=== PATIENT | male | born 1950 | race Caucasian/White ===

== ENCOUNTER 2017-10-29 11:25 | Observation (INO) ==
[2017-10-29] MEDS ORDERED: Aspirin 81 MG TAB.CHEW PO ONE (11:43)
[2017-10-29 11:59] LABS: Basophils # 0.1 K/mcL (0.0-0.2); Eosinophils # 0.4 K/mcL (0.0-0.6); Eosinophils % 4.8 %; Hematocrit 44.5 % (37.5-50.1); Hemoglobin 14.9 g/dL (12.9-16.9); Immature Granulocytes % 0.5 % (0-4); Immature Platelets 6.8 % (1.1-6.1); Lymphocytes # 2.9 K/mcL (0.6-4.6); Lymphocytes % 34.2 %; Mean Corpuscular HGB Conc 33.5 g/dL (31.6-35.5); Mean Corpuscular Hemoglobin 28.2 pg (28.0-33.3); Mean Corpuscular Volume 84.1 fL (83.0-100.0); Mean Platelet Volume 10.8 fL (9.4-12.4); Monocytes # 0.6 K/mcL (0.0-1.3); Monocytes % 6.6 %; Neutrophils # 4.4 K/mcL (1.6-8.9); Nucleated Red Blood Cells 0.4 /100 WBC (0); Platelet Count 206 K/mcL (140-400); Red Blood Count 5.29 M/mcL (4.19-5.50); Red Cell Distribution Width 12.9 % (11.5-14.5); Segmented Neutrophils % 52.9 %
--- NOTE | 2017-10-29 12:00 | Emergency Department Note ---
START Narrative - START START: I examined this patient and my medical decision-making was reviewed with the BACK GRAY CLOTH WASHER/PA/Advanced Practice Nurse/Resident Physician. I agree with the documented findings, disposition and treatment plan as described except to the extent set forth below. Patient has a history of cardiac disease and does have complaint of chest pain and shortness of breath for the last several days. The chest pain is exertional. Denies any pleuritic aspect of the chest pain and no radiation to the back but it does radiate to the left arm. I did review the EKG showing normal sinus rhythm with a rate of 77 without acute ischemic change. Symptoms are concerning for acute coronary syndrome and testing is initiated including labs, chest x-ray card cardiac monitoring and pulse ox. The patient does take one aspirin per day. 1200
[2017-10-29 12:34] LABS: BUN/Creatinine Ratio 21 (6-26); Blood Urea Nitrogen 18 mg/dL (8-23); Calcium 9.3 mg/dL (8.6-10.3); Carbon Dioxide 25 mEq/L (23-29); Chloride 108 mEq/L (98-107); Glucose 92 mg/dL (70-105); Osmolality,Calculated 294 (280-300); Potassium 4.1 mEq/L (3.5-5.1); Sodium 141 mEq/L (136-145); eGFR For African Americans > 60 (> 60); eGFR For Non-African Americans > 60 (> 60)
[2017-10-29 12:42] LABS: Troponin I < 0.03 ng/mL (< 0.04)
--- NOTE | 2017-10-29 13:24 | Emergency Department Note ---
Disposition Clinical Impression: Chest pain Qualifiers: Chest pain type: other chest pain Qualified Code(s): R07.89 - Other chest pain ; R07.8 - Other chest pain Disposition: Admitted As Inpatient Condition: Fair General Adult HPI - General Chief complaint: ED Chest Pain Stated complaint: Chest Pain Time Seen by Provider: 10/29/17 11:29 Source: patient Limitations: no limitations Nursing Notes Reviewed: Yes Vital Signs Reviewed: Yes - History of Present Illness HPI Narrative: Mr. Jeremiah Mendoza is a 67 year old male with past medical history of PA with stent 2 years ago, presents with 1 day onset of substernal chest pain that is dull, worsens with exertion, and radiates to the left arm. The pain is intermittent, improves with rest, does not change with deep inspiration, movement of torso, or direct palpation. He takes a beta-chirag and a daily aspirin, current smoker (1/2 PPD x 20 years). He denies shortness of breath/ pleuritic pain, recent trauma, or acid reflux. Pain Scale: 4 - Related Data Home Medications Medication Instructions Recorded Confirmed Amlodipine Besylate [Amlodipine 10 mg PO DAILY 10/29/17 10/29/17 Besylate] Clopidogrel [Plavix] 75 mg PO DAILY 10/29/17 10/29/17 Doxazosin [Cardura] 4 mg PO DAILY 10/29/17 10/29/17 Lisinopril [Zestril] 40 mg PO DAILY 10/29/17 10/29/17 Lovastatin [Lovastatin] 40 mg PO DAILY 10/29/17 10/29/17 Metoprolol Tartrate [Metoprolol 50 mg PO BID 10/29/17 10/29/17 Tartrate] Allergies Allergy/AdvReac Type Severity Reaction Status Date / Time No Known Allergies Allergy Verified 10/29/17 11:34 Constitutional: Denies: fever Cardiovascular: Reports: chest pain Respiratory: Denies: cough, dyspnea Gastrointestinal: Denies: abdominal pain Musculoskeletal: Denies: back pain Integumentary: Denies: rash Neurological: Denies: headache Psychiatric: Denies: anxiety Endocrine: Denies: fatigue Hematological/Lymphatic: Denies: easy bleeding Past Medical History - Past Medical History Medical history: Reports: hyperlipidemia, hypertension, myocardial infarction Psychiatric history: Reports: no psych history - Social History Smoking Status: Current every day smoker Smokeless Tobacco Status: No Alcohol use: Reports: none Drug use: Reports: none Physical Exam - General Limitations: no limitations General appearance: alert, in no apparent distress - Head Head exam: atraumatic - Eye Eye exam: Present: EOMI - Expanded Neck Exam Neck exam focused ED: Absent: JVD - Chest Chest inspection: Present: normal inspection, symmetric chest wall rise - Respiratory Respiratory exam: Present: normal lung sounds bilaterally - Cardiovascular Cardiovascular exam: Present: regular rate, normal rhythm, +S1, +S2, other (no pain on movement of torso, no tenderness to palpation of sternum, ribs, or precordial chest). Absent: systolic murmur, diastolic murmur, rubs, gallop - Abdominal Exam Abdominal exam: Absent: tenderness at McBurney's Point, bruit, pulsatile mass - Extremities Exam Extremities exam: Absent: pedal edema, calf tenderness Course Course Narrative: Mr. Mendoza presents with substernal chest pain that is dull, radiates to left arm, and worsens with exertion. ECG was obtained, showing NSR, no st elevation or depression, no t wave abnormalities, normal axis. Negative troponin x1. Based on patient's history of PA 2 years ago with similar presentation, age of 67, risk factors including smoking, hypertension, we will admit for inpatient observation. Vital Signs Temperature 97.9 F 10/29/17 11:28 Pulse Rate 78 10/29/17 11:28 Respiratory Rate 16 10/29/17 11:28 Blood Pressure 134/81 10/29/17 11:28 O2 Sat by Pulse Oximetry 96 10/29/17 11:28 Temperature 98.0 F 10/29/17 16:43 Pulse Rate 83 10/29/17 16:43 Respiratory Rate 16 10/29/17 16:43 Blood Pressure 129/74 10/29/17 16:43 O2 Sat by Pulse Oximetry 95 10/29/17 16:43 Oxygen Delivery Oxygen Delivery Room Air Medical Decision Making - Medical Records Medical records reviewed: Yes I reviewed the patient's medical records. - Lab Data Lab results reviewed: Yes I reviewed the patient's lab results. Result diagrams: 10/29/17 11:54 10/29/17 11:54 Lab Results 10/29/17 10/29/17 Range/Units 11:54 11:54 WBC 8.4 (4.3-11.1) K/mcL RBC 5.29 (4.19-5.50) M/mcL Hgb 14.9 (12.9-16.9) g/dL Hct 44.5 (37.5-50.1) % MCV 84.1 (83.0-100.0) fL MCH 28.2 (28.0-33.3) pg MCHC 33.5 (31.6-35.5) g/dL RDW 12.9 (11.5-14.5) % Plt Count 206 (140-400) K/mcL MPV 10.8 (9.4-12.4) fL Immature Gran % 0.5 (0-4) % Seg Neutrophils % 52.9 % Lymphocytes % 34.2 % Monocytes % 6.6 % Eosinophils % 4.8 % Basophils % 1.0 % Neutrophils # 4.4 (1.6-8.9) K/mcL Lymphocytes # 2.9 (0.6-4.6) K/mcL Monocytes # 0.6 (0.0-1.3) K/mcL Eosinophils # 0.4 (0.0-0.6) K/mcL Basophils # 0.1 (0.0-0.2) K/mcL Nucleated RBCs/100 WBC 0.4 H (0) /100 WBC Immature Plt Fraction 6.8 H (1.1-6.1) % Sodium 141 (136-145) mEq/L Potassium 4.1 (3.5-5.1) mEq/L Chloride 108 H (98-107) mEq/L Carbon Dioxide 25 (23-29) mEq/L BUN 18 (8-23) mg/dL Creatinine 0.84 (0.70-1.30) mg/dL Est GFR ( Amer) > 60 (> 60) Est GFR (Non-Af Amer) > 60 (> 60) BUN/Creatinine Ratio 21 (6-26) Glucose 92 (70-105) mg/dL Calculated Osmolality 294 (280-300) Calcium 9.3 (8.6-10.3) mg/dL Troponin I < 0.03 (< 0.04) ng/mL TSH 1.367 (0.340-5.600) mcIU/mL Free T4 0.78 (0.70-2.00) ng/dl - Radiology Data Radiology results reviewed: Yes I reviewed the patient's radiology results. Chest X-Ray 10/29/17 11:44 IMPRESSION: No acute cardiopulmonary process. D/ / Mohan Hall MD / Mohan Hall MD Interpreting Provider: Mohan Hall MD - EKG Data EKG #1 EKG attestation: Yes I reviewed and interpreted this EKG. EKG results narrative: ECG obtained 1126. Shows regular rate at 77 bpm. Normal axis. Normal R wave progression, no st elevation or depression.
[2017-10-29] MEDS ORDERED: Naloxone 0.4 MG/ML INJ IVP PRN (14:14)
[2017-10-29] MEDS ORDERED: Acetaminophen 325 MG TABLET PO PRN (14:14)
[2017-10-29] MEDS ORDERED: *HR* HYDROcodone/Acet 5/325 mg TABLET PO PRN (14:14)
--- NOTE | 2017-10-29 14:28 | Internal Med History&Physical ---
Date of Encounter: 10/29/17 Time of Encounter: 13:45 Assessment and Plan (1) Chest pain Current visit: Yes Status: Acute Acute chest pain that began yesterday and described as centralized chest pressure and SOB that worsens w/exertion. Also radiation to left arm. Reports same intermittent sx two weeks ago. Risk factors include HTN, HLD, tobacco abuse , and previous IN 2 years ago w/stent x1. Denies CP during exam. No recent echocardiogram or stress test. Initial troponin <0.03. Trend x2. Continuous cardiac telemetry. Echocardiogram ordered. NPO at midnight for a.m. exercise stress test. Aspirin. Lipitor 80 mg now followed by 10 mg daily. Consider Cardiology consult if troponins, echocardiogram, and/or stress test results abnormal. Pt. discussed w/Dr. Hines who agrees w/plan of care. Pt. is high risk for further morbidity and cardiac event based on current CP sx, hx of previous IN 2 years ago w/stent placement x1, hx; and risk factors of HTN, HLD, and current tobacco abuse. Observation. Qualifiers: Chest pain type: other chest pain Qualified Code(s): R07.89 - Other chest pain; R07.8 - Other chest pain (2) Tobacco abuse counseling Current visit: Yes Status: Acute Pt. counseled >10 minutes regarding smoking cessation and the need for it regarding his current sx, overall health, and risk factors. Pt. denied need for nicotine patch while inpatient. (3) HTN (hypertension) Current visit: Yes Status: Chronic Hx of chronic HTN. Monitor pt. and VS. Continue pts. lisinopril, Metoprolol, and amlodipine. Qualifiers: Hypertension type: essential hypertension Qualified Code(s): I10 - Essential (primary) hypertension (4) HLD (hyperlipidemia) Current visit: Yes Status: Chronic Hx of chronic HLD. Lipid panel in a.m. labs. Continue pts. Lipitor. Qualifiers: Hyperlipidemia type: pure hypercholesterolemia Qualified Code(s): E78.00 - Pure hypercholesterolemia, unspecified; E78.0 - Pure hypercholesterolemia (5) DVT prophylaxis Current visit: Yes Status: Acute Heparin 5,000 units SQ Q12 for DVT prophylaxis. Monitor pt. for signs of bleeding. Internal Medicine - H&P: HPI Chief complaint: Chest pain Admitted From: Emergency Dept Plans for Post Hospital Care: Home History of present illness: Mr. Mendoza is a 67 year old male w/PMH of HTN, HLD, and previous IN 2 years ago w/stent placement x1 presents from the ED w/chief complaint of chest pain that began yesterday and he describes as pressure in the center of his chest with radiation to his left arm, increasing chest pain and shortness of breath with exertion, and intermittent symptoms for the past 2 weeks. Pt. denies alleviating factors. Pt. reports taking aspirin daily. 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 Pt. denies recent illness, fever, chills, nausea, vomiting, headache, changes in vision, palpitations, abdominal pain, unusual bleeding, diarrhea, constipation, lightheadedness, dizziness, pre-syncope, or syncope. Past Med Surg Social Fam HX - Past Medical History Source: patient, old records reviewed Medical history: hyperlipidemia, hypertension, myocardial infarction (Two years ago w/stent placement x1) Psychiatric history: no psych history - Past Surgical History Surgical History: orthopedic, other (Back surgery) - Social History Smoking Status: Current every day smoker Packs per day: 1/2 PPD Smokeless Tobacco Status: No Alcohol use: none Drug use: none Occupational status: employed Current living situation: Home Activity Level: Independent ambulation, Very active Recent Out of Country Travel Within the Last 8 Weeks: No Exposure or Possible Exposure to Illness During Travel: No - Family History Father Race: Family Member Ethnicity: Non- Living Status: Age at : 58 Cause of : IN Hx Family Cardiac Disorders: Yes (IN, CVA, HTN, HLD) Mother Race: Family Member Ethnicity: Non- Living Status: Age at : 63 Cause of : IN Hx Family Cardiac Disorders: Yes (IN, HTN, HLD) Hx Family Endocrine Disorder: Yes (DM) Brother Race: Family Member Ethnicity: Non- Living Status: Still Living Hx Family Endocrine Disorder: Yes Sister Race: Family Member Ethnicity: Non- Living Status: Age at : 52 Cause of : Ovarian cancer Hx Family Cancer: Yes (Ovarian) Internal Medicine - H&P: Meds Amlodipine Besylate [Amlodipine Besylate] 10 mg PO DAILY 10/29/17 [History] Clopidogrel [Plavix] 75 mg PO DAILY 10/29/17 [History] Doxazosin [Cardura] 4 mg PO DAILY 10/29/17 [History] Lisinopril [Zestril] 40 mg PO DAILY 10/29/17 [History] Lovastatin [Lovastatin] 40 mg PO DAILY 10/29/17 [History] Metoprolol Tartrate [Metoprolol Tartrate] 50 mg PO BID 10/29/17 [History] 3 Allergy/AdvReac Type Severity Reaction Status Date / Time No Known Allergies Allergy Verified 10/29/17 11:34 All Systems PM: A 10-system review of systems was performed and is negative for pertinent findings except as documented above in the HPI. - Constitutional Constitutional: no chills, no fever(s), no night sweats - EENT Eyes: no change in vision, no discharge, no pain, no photophobia Ears: no ear discharge, no ear pain, no tinnitus Nose, mouth and throat: no dysphagia, no nasal discharge, no neck pain, no sore throat - Cardiovascular Cardiovascular ROS IM: as per HPI, chest pain (Pressure in central chest w/ radiation to left arm. Worse w/exertion. ), dyspnea, dyspnea on exertion, no diaphoresis, no lightheadedness, no palpitations, no syncope - Respiratory Respiratory: as per HPI, dyspnea, dyspnea on exertion, no cough, no wheezing, no excessive phlegm production - Gastrointestinal Gastrointestinal: no abdominal pain, no diarrhea, no hematemesis, no hematochezia, no melena, no nausea, no vomiting - Genitourinary Genitourinary ROS male: as per HPI - Musculoskeletal Musculoskeletal ROS IM: no numbness, no tingling - Integumentary Integumentary IM: no rash, no unusual bruising - Neurological Neurological ROS: no confusion, no convulsions, no focal weakness, no numbness, no tingling, no tremor(s) - Psychiatric Psychiatric: as per HPI - Endocrine Endocrine IM: as per HPI - Hematologic/Lymphatic Hematologic/Lymphatic: no easy bruising - Allergic/Immunologic Allergic/Immunologic: as per HPI - Constitutional Vitals: Temp Pulse Resp BP Pulse Ox 97.9 F 75 18 124/80 95 10/29/17 11:28 10/29/17 13:29 10/29/17 14:22 10/29/17 14:22 10/29/17 13:29 General appearance: Present: cooperative, A&O X 3, pleasant, no acute distress, answers questions appropriately - Head Head exam: Present: atraumatic, normocephalic - Eye Eye exam: Present: PERRL, conjuntiva pink, sclera anicteric Pupils: Present: PERRL - ENT ENT exam: Present: normal exam - Neck Neck exam general surgery: Present: normal inspection, supple, trachea midline. Absent: lymphadenopathy - Respiratory Respiratory exam: Present: CTAB. Absent: accessory muscle use, rales, rhonchi, wheezes - Cardiovascular Cardiovascular exam: Present: RRR, +S1, +S2. Absent: diastolic murmur, gallop, rubs, systolic murmur - GI/Abdominal GI/Abdominal exam: Present: normal bowel sounds, soft, no peritoneal signs. Absent: distended, tenderness - Rectal Rectal exam: Present: deferred - Additional comments: exam deferred. - Extremities Exam Extremities exam: Present: warm, radial pulses palpable and symmetrical. Absent : calf tenderness, cyanotic, pedal edema - Back Exam Back exam: Present: normal inspection - Neurological Exam Neurological exam: Present: CN II-XII intact, oriented X3, no focal deficits. Absent: pronater drift, facial droop, speech deficit - Psychiatric Psychiatric exam: Present: normal affect, normal mood - Skin Skin exam: Present: dry, intact Internal Med - H&P Results - Labs CBC & Chem 7: 10/29/17 11:54 10/29/17 11:54 - EKG Data EKG shows normal: sinus rhythm - EKG Data Prior EKG available for review: yes Interpretation IM: suggestive of ischemia EKG comments: 10/29/17 15:44 EKG dated 02/09/15 shows sinus rhythm. Consider posterior IN. EKG dated 10/29/17 shows sinus rhythm and normal ECG. - Diagnostic Studies Chest x-ray Additional comments: Impressions Chest X-Ray 10/29/17 11:44 IMPRESSION: No acute cardiopulmonary process. D/ / Mohan Hall MD / Mohan Hall MD Interpreting Provider: Mohan Hall MD
[2017-10-29 16:30] LABS: Thyroid Stimulating Hormone 1.367 mcIU/mL (0.340-5.600)
[2017-10-29] MEDS: *HR* Heparin 5,000 UNIT/ML VIAL SQ SCH (17:35)
[2017-10-30 00:59] LABS: Basophils # 0.1 K/mcL (0.0-0.2); Basophils % 0.7 %; Eosinophils # 0.4 K/mcL (0.0-0.6); Eosinophils % 3.6 %; Hematocrit 38.3 % (37.5-50.1); Hemoglobin 13.2 g/dL (12.9-16.9); Immature Granulocytes % 0.4 % (0-4); Lymphocytes # 2.9 K/mcL (0.6-4.6); Lymphocytes % 29.6 %; Mean Corpuscular HGB Conc 34.5 g/dL (31.6-35.5); Mean Corpuscular Hemoglobin 28.7 pg (28.0-33.3); Mean Corpuscular Volume 83.3 fL (83.0-100.0); Mean Platelet Volume 11.1 fL (9.4-12.4); Monocytes # 0.8 K/mcL (0.0-1.3); Monocytes % 7.8 %; Neutrophils # 5.7 K/mcL (1.6-8.9); Platelet Count 186 K/mcL (140-400); Red Cell Distribution Width 13.2 % (11.5-14.5); Segmented Neutrophils % 57.9 %
[2017-10-30 01:23] LABS: Alanine Aminotransferase 16 Units/L (7-52); Albumin 3.7 g/dL (3.5-5.7); Albumin/Globulin Ratio 1.5 (1.1-2.2); Alkaline Phosphatase 85 Units/L (34-104); Aspartate Amino Transferase 18 Units/L (13-39); BUN/Creatinine Ratio 25 (6-26); Bilirubin,Total 0.4 mg/dL (0.3-1.0); Blood Urea Nitrogen 21 mg/dL (8-23); Calcium 8.9 mg/dL (8.6-10.3); Carbon Dioxide 25 mEq/L (23-29); Chloride 110 mEq/L (98-107); Chol/HDL Ratio 6.6 (0-4.9); Cholesterol 191 mg/dL (< 200); Globulin 2.4 g/dL (2.4-3.5); Glucose 125 mg/dL (70-105); HDL Cholesterol 29 mg/dL (40-59); LDL Cholesterol,Calculated 120 mg/dL (0-99); Magnesium 2.2 mg/dL (1.6-2.6); Osmolality,Calculated 292 (280-300); Potassium 3.8 mEq/L (3.5-5.1); Sodium 139 mEq/L (136-145); Total Protein 6.1 g/dL (6.4-8.9); Triglycerides 208 mg/dL (< 150); eGFR For African Americans > 60 (> 60); eGFR For Non-African Americans > 60 (> 60)
[2017-10-30] MEDS: *HR* Heparin 5,000 UNIT/ML VIAL SQ SCH (05:55)
[2017-10-30] MEDS ORDERED: Regadenoson 0.4 MG/5 ML SYRINGE IVP ONE (06:04)
[2017-10-30] MEDS ORDERED: Aspirin Enteric Coated 81 MG Tablet PO SCH (09:00)
[2017-10-30] MEDS ORDERED: Lisinopril 20 MG TABLET PO SCH (09:00)
[2017-10-30] MEDS ORDERED: amLODIPine 5 MG TABLET PO SCH (09:00)
[2017-10-30 11:22] VITALS: BP 115/74
--- NOTE | 2017-10-30 13:18 | Discharge Summary ---
Orders not resulted at time of discharge: Pending orders 10/29/17 14:18 NM melania perf SPECT multi [NM] Routine 10/30/17 00:48 A1C [Hgb A1C] AM 0400 10/31/17 04:00 Complete Blood Count [HEME] AM 0400 Comprehensive Metabolic Panel AM 0400 11/01/17 04:00 Complete Blood Count [HEME] AM 0400 Comprehensive Metabolic Panel AM 0400 11/02/17 04:00 Complete Blood Count [HEME] AM 0400 Comprehensive Metabolic Panel AM 0400 Date of Encounter: 11/10/17 Time of Encounter: 14:58 - Discharge Diagnosis (1) Chest pain Priority: Primary Status: Acute Comments: presented with CP and SOB that occurred while engaging in strenuous activity. Relieved with rest. Has known CAD as noted below. Serial troponins negative. EKG without acute ST changes. Stress test with evidence of old infarct, negative for ischemia. Chest pain resolved at time of discharge. Continue home ASA, Plavix, statin, BB, isosorbide added. Follow-up with cardiology and/or PCP outpatient. Qualifiers: Chest pain type: other chest pain Qualified Code(s): R07.89 - Other chest pain; R07.8 - Other chest pain (2) CAD (coronary artery disease) Priority: Primary Status: Acute Comments: hx prior NE and stents. With chest pain and workup as noted above. Continue home ASA, Plavix, statin, BB. Follow-up with cardiology outpatient. Qualifiers: Coronary Disease-Associated Artery/Lesion type: [place] artery [place] vs. transplanted heart: [place] heart Associated angina: without angina Qualified Code(s): I25.10 - Atherosclerotic heart disease of [place] coronary artery without angina pectoris (3) HLD (hyperlipidemia) Priority: Secondary Status: Chronic Comments: per hx. Cont home statin Qualifiers: Hyperlipidemia type: pure hypercholesterolemia Qualified Code(s): E78.00 - Pure hypercholesterolemia, unspecified; E78.0 - Pure hypercholesterolemia (4) HTN (hypertension) Priority: Secondary Status: Chronic Comments: per hx. BP controlled. Cont home BP medication Qualifiers: Hypertension type: essential hypertension Qualified Code(s): I10 - Essential (primary) hypertension Hospital course: Mr. Mendoza is a 67 year old male with PMH CAD and hypertension who presented to [facility] on 10/29/2017 with complaints of chest pain or shortness of breath. He was placed in observation status for ACS rule out. Please see assessment and plan for further details Discharge discussed with: patient - Time Spent with Patient Total time spent providing and/or coordinating discharge services: - Discharge Medications Prescriptions: Isosorbide MONOnitrate (24 HR) [Imdur] 30 mg PO DAILY #30 tab.er.24h Home Medications: Amlodipine Besylate 10 mg PO DAILY 10/29/17 [History] Clopidogrel [Plavix] 75 mg PO DAILY 10/29/17 [History] Doxazosin [Cardura] 4 mg PO DAILY 10/29/17 [History] Lisinopril [Zestril] 40 mg PO DAILY 10/29/17 [History] Lovastatin 40 mg PO DAILY 10/29/17 [History] Metoprolol Tartrate 50 mg PO BID 10/29/17 [History] Isosorbide MONOnitrate (24 HR) [Imdur] 30 mg PO DAILY #30 tab.er.24h 10/30/17 [ Rx] Allergies/Adverse Reactions: 3 Allergy/AdvReac Type Severity Reaction Status Date / Time No Known Allergies Allergy Verified 10/29/17 11:34 Date of admission: 10/29/17 13:55 Primary care physician: Dipti Jonas CNP Consults: 10/29/17 14:16 Consult to Manager Clinical Research [CONS] Routine Reason for SW Consult: Please assess patient for possible home needs for post -discharge planning. Discharging clinician: Jessica Morrell Anticipated date of discharge: 10/30/17 - Constitutional Vitals: Temp Pulse Resp BP Pulse Ox 98.2 F 70 17 115/74 94 10/30/17 11:21 10/30/17 11:21 10/30/17 11:21 10/30/17 11:21 10/30/17 11:21 General appearance: Present: cooperative, A&O X 3, pleasant, no acute distress, answers questions appropriately - Head Head exam: Present: atraumatic, normocephalic - Eye Eye exam: Present: PERRL, conjuntiva pink, sclera anicteric Pupils: Present: PERRL - Neck Neck exam general surgery: Present: supple, trachea midline. Absent: lymphadenopathy - Respiratory Respiratory exam: Present: CTAB. Absent: accessory muscle use, rales, rhonchi, wheezes - Cardiovascular Cardiovascular exam: Present: RRR, +S1, +S2. Absent: diastolic murmur, gallop, rubs, systolic murmur - GI/Abdominal GI/Abdominal exam: Present: normal bowel sounds, soft, no peritoneal signs. Absent: distended, tenderness - Extremities Exam Extremities exam: Present: warm, radial pulses palpable and symmetrical. Absent : calf tenderness, cyanotic, pedal edema - Neurological Exam Neurological exam: Present: CN II-XII intact, oriented X3, no focal deficits. Absent: pronater drift, facial droop, speech deficit - Skin Skin exam: Present: dry, intact - Patient Status Disposition: Home, Self-Care Condition: Good Functional capacity at discharge: independent ambulation Overall status at discharge: patient is back to baseline - Discharge Instructions Instructions: Isosorbide Mononitrate (By mouth), Chest Pain (DC), How to Stop Smoking (DC) Follow Up With: Dipti Jonas, NURSES' REGISTRY DIRECTOR [Primary Care Provider] - (Please call for follow-up appointment within 1 week) Bulmaro Esparza, DO [Partnered Physician] - (Please call for follow-up appointment within 2-3 weeks and you may need a referral from her family care doctor.) - Diet and Activity Activity: increase activity as tolerated Diet: advance to your usual diet
[2017-10-31 08:35] LABS: Estimated Average Glucose 120 mg/dl; Hemoglobin A1C 5.8 %
--- NOTE | 2017-11-02 22:38 | Electrocardiograph Report ---
[place] [id number] Test Date: 2017-10-29 Pat Name: Jeremiah Mendoza Department: 103 Room: 2A Gender: M Separator Inserter: RASHAUN : 1950 Requested By: Nickolas Whitley Order Number: [id number] Reading MD: Bulmaro Esparza DO Measurements Intervals [place] Rate: 77 P: 52 MO: 158 QRS: 15 QRSD: 93 T: 31 QT: 352 QTc: 384 Interpretive Statements SINUS RHYTHM Electronically Signed On 11-02-2017 22:36:42 EDT by Bulmaro Esparza DO
== END 2017-10-30 15:36 | disposition home or self-care (01) ==
LOC: 2SOUTHHOLD 11:25 → EMEROO 11:25 → 2SOUTHHOLD 14:19 → 2ANU 17:56
PROVIDERS: ADMIT Student in an Organized Health Care Education/Training Program; ATTEND Student in an Organized Health Care Education/Training Program